=== PATIENT | male | born 1965 | race African-American/Black ===

== ENCOUNTER 2023-09-24 21:17 | Emergency (ER) | payer OTHER ==
--- NOTE | 2023-09-24 22:35 | ER ---
Nurse's Notes [facility] Name: Fritz Palacios Age: 58 yrs Sex: Male : 1965 Arrival Date: 09/24/2023 Time: 21:17 Bed IW1 Private MD: Diagnosis: Presentation: 09/23 21:46 Chief complaint: Patient states: Pt states he was walking outside when a bug flew in tl4 his right ear x 2 hours ago. Pt states he can hear and feel it. Coronavirus screen: At this time, the client does not indicate any symptoms associated with coronavirus-19. Ebola Screen: No symptoms or risks identified at this time. Initial Sepsis Screen: Does the patient meet any 2 criteria? No. Patient's initial sepsis screen is negative. Does the patient have a suspected source of infection? No. Patient's initial sepsis screen is negative. Risk Assessment: Do you want to hurt yourself or someone else? Patient reports no desire to harm self or others. Onset of symptoms was September 24, 2023 at 19:30. 21:46 Method Of Arrival: Ambulatory tl4 21:46 Acuity: GENE 4 tl4 Triage Assessment: 21:48 General: Appears in no apparent distress. Behavior is calm, cooperative. Pain: Denies tl4 pain. EENT: Reports bug in right ear. Neuro: Level of Consciousness is awake, alert, obeys commands, Oriented to person, place, time, situation. Cardiovascular: Capillary refill < 3 seconds Patient's skin is warm and dry. Respiratory: Airway is patent Respiratory effort is even, unlabored, Respiratory pattern is regular, symmetrical. GI: No signs and/or symptoms were reported involving the gastrointestinal system. : No signs and/or symptoms were reported regarding the genitourinary system. Derm: No signs and/or symptoms reported regarding the dermatologic system. Musculoskeletal: No signs and/or symptoms reported regarding the musculoskeletal system. Historical: - Allergies: 21:48 No Known Allergies; tl4 - Home Meds: 21:48 None [Active]; tl4 - PMHx: 21:48 None; tl4 - PSHx: 21:48 None; tl4 - Immunization history:: Adult Immunizations unknown. - Infectious Disease History:: Denies. - Social history:: Smoking status: Patient denies any tobacco usage or history of. Assessment: 22:32 General: bug came out while patient was sitting in lobby, registration called and vc1 stated patient left. Vital Signs: 21:46 BP 131 / 78; Pulse 75; Resp 16; Temp 98.1(TE); Pulse Ox 98% on R/A; Weight 77.11 kg; tl4 Height 5 ft. 10 in. ; Pain 0/10; 21:46 Body Mass Index 24.39 (77.11 kg, 177.8 cm) tl4 21:46 Pain Scale: Adult tl4 ED Course: 21:19 Patient arrived in ED. mr 21:22 Celestine Garcia PA is PHCP. cp 21:22 Rodrigo Silva MD is Attending Physician. cp 21:48 Triage completed. tl4 21:49 Arm band placed on right wrist. tl4 Administered Medications: No medications were administered Outcome: 22:34 Eloped from waiting room, before seeing physician vc1 22:34 Condition: good 22:35 Patient left the ED. vc1 Signatures: Alea Javed, Reg Reg mr Celestine Garcia PA PA cp Calcote, Vanessa, RN RN vc1 Trino Brown, RN RN tl4
[2023-09-24 22:53] VITALS: BP 131/78; TEMP 98.1; O2SAT 98
--- OUTSIDE RECORDS SUMMARY | 2023-09-27 08:58 | XMS REPORT | Continuity of Care Document ---
Author Name Unknown Address [address] [place] [address] [facility] thconnect Address [address] [place] [address] Care Team Providers Care Multineedle Shirrer Name Role Phone Gris LeeKaliKian Primary Care Physician [phone] Sander Lindsay Attending Clinician [phone] SANDER PHAM Attending Clinician Unavailable Adilia Dunlap Attending Clinician [phone] Doctor Unassigned, [place] Attending Clinician U navailable Payers Payer Name Policy Type Policy Number Effective Date Expirati on Date Source Problems Condition Name Condition Details Condition Category Status Onset Date Resolution Date Last Treatment Date Treating Clinician Comments Source No known active problems No known active problems Disease [facility] Allergies, Adverse Reactions, Alerts Allergy Name Allergy Type Status Severity Reaction(s) Onset Date Inactive Date Treating Clinician Comments Source NO KNOWN ALLERGIE S Drug Class Active [facility] Social History Social Habit Start Date Stop Date Quantity Comments Source Tobacco use and exposure 2018-10-15 00:00:00 2018-10-15 00:00:00 Never used [facility] Sex Assigned At 1965 00:00:00 1965 00:00:00 [facility] Smoking Status Start Date Stop Date Source Never smoker [facility] Medications Ordered Medication Name Filled Medication Name Start Date Stop Date Current Medication? Ordering Clinician Indication Dosage Frequency Signature (SIG) Comments Components Source fexofenadin e-pseudoeph edrine (KEITH-D 24 HOUR) 180-240 mg per 24 hr tablet 10-15 00:00: 00 Yes [id number] 1{tbl} Take 1 tablet by mouth daily. [facility] fluticasone propionate 50 mcg/actuati on nasal spray 10-15 00:00: 00 Yes [id number] 2{spray } Use 2 Sprays in each nostril daily. [facility] Vital Signs Vital Name Observation Time Observation Value Comments Jaime hernandez Systolic blood pressure 2021-01-25 21:32:00 144 mm[Hg] [facility] Diastolic blood pressure 2021-01-25 21:32:00 83 mm[Hg] [facility] Heart rate 2021-01-25 21:32:00 63 /min [facility] Body temperature 2021-01-25 21:32:00 36.72 Mariana [facility] Respiratory rate 2021-01-25 21:32:00 14 /min [facility] Body height 2021-01-25 21:32:00 177.8 cm [facility] Body weight 2021-01-25 21:32:00 80.015 kg [facility] BMI 2021-01-25 21:32:00 25.31 kg/m2 [facility] Oxygen saturation in Arterial blood by Pulse oximetry 2021-01-25 21:32:00 100 /min [facility] Encounters Start Date/Time End Date/Time Encounter Type Admission Type Attending Clinicians Care Facility Care Department Encounter ID Source 2021-01-25 15:40:00 2021-01-25 16:00:00 Urgent Care Sander Pham ON LICENSE OF [facility] [id number] [facility] 2021-01-25 15:40:00 2021-01-25 15:40:00 Outpatient R SANDER PHAM [facility] [id number] [facility] 2018-10-15 19:08:14 2018-10-15 19:23:14 Urgent Care Adilia Purdy [facility]ruv Sanders [id number] 2018-10-15 00:00:00 2018-10-15 00:00:00 Orders Only Doctor Unassigned, [place] [facility] [id number]
== END 2023-09-24 22:35 | disposition left against medical advice (07) ==
LOC: ER 21:17
DX: Z53.21 Procedure and treatment not carried out due to patient leaving prior to being seen by health care provider (principal)
CPT/HCPCS: 99281